=== PATIENT | male | born 1985 | race Caucasian/White ===

== ENCOUNTER 2016-05-24 03:35 | Emergency (ER) | payer BC, MEDICAID ==
[2016-05-24] MEDS ORDERED: SODIUM CHLORIDE 0.9% 1,000 ML ONE (04:10)
== END 2016-05-24 07:40 | disposition home or self-care (01) ==
LOC: ER 03:35
DX: F10.120 Alcohol abuse with intoxication, uncomplicated (principal); R41.82 Altered mental status, unspecified; F17.210 Nicotine dependence, cigarettes, uncomplicated
CPT/HCPCS: 36415; 80053; 80320; 85025; 93005; 96360; 96361